=== PATIENT | male | born 1995 | race Two or more races ===

== ENCOUNTER 2016-08-30 12:44 | Emergency (ER) | payer OTHER ==
[~2016-08-30] VITALS: Ht 170.2 cm; Wt 65.8 kg
[2016-08-30 13:20] VITALS: BP 133/67
== END 2016-08-30 13:46 | disposition home or self-care (01) ==
LOC: ER 12:44
DX: R07.89 Other chest pain (principal); Z88.1 Allergy status to other antibiotic agents; V49.49XA Driver injured in collision with other motor vehicles in traffic accident, initial encounter; Y93.89 Activity, other specified; Y92.89 Other specified places as the place of occurrence of the external cause; Y99.8 Other external cause status